=== PATIENT | female | born 1985 | race Caucasian/White ===

== ENCOUNTER 2016-09-28 12:55 | Emergency (ER) | payer MEDICAID ==
[~2016-09-28] VITALS: Ht 165.1 cm; Wt 65.0 kg
[2016-09-28] MEDS ORDERED: SODIUM CHLORIDE 0.9% 1,000 ML IV ONE (13:38)
[2016-09-28 14:45] LABS: BASOPHILS % 0.8 % (0.0-2.0); EOSINOPHILS % 1.5 % (0.0-5.0); HEMATOCRIT. 33.5 % (36.0-48.0); HEMOGLOBIN. 10.8 g/dL (12.0-16.0); LYMPHOCYTES % 20.5 % (20.0-50.0); MEAN CORPUSCULAR HEMOGLOBIN 24.5 pg (28.0-32.0); MEAN CORPUSCULAR VOLUME 76.1 fL (81.0-99.0); MEAN PLATELET VOLUME 8.1 fl (7.4-10.4); MONOCYTES % 8.7 % (2.0-8.0); NEUTROPHILS % 68.5 % (40.0-76.0); PLATELET 284 x1000/uL (130-400); RED CELL DISTRIBUTION WIDTH 17.3 % (11.6-14.6)
[2016-09-28 15:01] LABS: B-HCG QUANTITATIVE < 1 mIU/mL (<3); CARBON DIOXIDE 25 mEq/L (21-32); CHLORIDE 108 mEq/L (98-107)
[2016-09-28 15:25] LABS: CLARITY URINE CLEAR (CLEAR); COLOR URINE YELLOW (YELLOW); GLUCOSE URINE NEGATIVE (NEGATIVE); KETONES URINE 2+ (NEGATIVE); LEUKOCYTE ESTERASE URINE NEGATIVE (NEGATIVE); NITRITE URINE NEGATIVE (NEGATIVE); OCCULT BLOOD URINE NEGATIVE (NEGATIVE); PROTEIN URINE 1+ (NEGATIVE); SPECIFIC GRAVITY URINE 1.027 (1.005-1.030); UROBILINOGEN URINE 0.2 E.U./dL (0.2-1.0)
[2016-09-28] MEDS: MORPHINE SULFATE 4 MG/ML CPJ (NOT FOR IM USE) IV NR ×3 (16:18→16:48)
[2016-09-28] MEDS ORDERED: FLUORESCEIN SODIUM 1MG/STRIP OP ONE (16:45)
[2016-09-28] MEDS ORDERED: TETRACAINE 0.5% OPHTH DROPS 4ML OP ONE (16:45)
[2016-09-28] MEDS ORDERED: FAMOTIDINE 20MG/2ML VIAL IV STA (18:00)
[2016-09-28] MEDS ORDERED: MAGNESIUM/ALUMINUM HYDROXIDE/SIMETHICONE 30ML UDC PO STA (18:02)
[2016-09-28 19:06] LABS: BASOPHILS % 0.7 % (0.0-2.0); EOSINOPHILS % 2.4 % (0.0-5.0); HEMATOCRIT. 29.4 % (36.0-48.0); HEMOGLOBIN. 9.5 g/dL (12.0-16.0); LYMPHOCYTES % 22.1 % (20.0-50.0); MEAN CORPUSCULAR HEMOGLOBIN 24.6 pg (28.0-32.0); MEAN CORPUSCULAR VOLUME 76.1 fL (81.0-99.0); MONOCYTES % 9.8 % (2.0-8.0); PLATELET 248 x1000/uL (130-400); RED BLOOD CELL COUNT 3.86 mill/uL (4.2-5.4); RED CELL DISTRIBUTION WIDTH 17.1 % (11.6-14.6)
[2016-09-28 19:10] LABS: CHLORIDE 109 mEq/L (98-107)
[2016-09-28 19:14] LABS: CARBON DIOXIDE 24 mEq/L (21-32)
[2016-09-28 19:21] LABS: ETHANOL BLOOD < 10 mg/dL
[2016-09-29] MEDS ORDERED: FLUORESCEIN SODIUM 1MG/STRIP ONE (03:57)
[2016-09-29] MEDS ORDERED: TETRACAINE 0.5% OPHTH DROPS 4ML ONE (03:58)
[2016-09-29] MEDS ORDERED: MORPHINE SULFATE 4 MG/ML CPJ (NOT FOR IM USE) IV ONE (04:48)
[2016-09-29] MEDS ORDERED: ONDANSETRON HCL 4MG/2ML VIAL ONE (04:49)
[2016-09-29 08:03] LABS: *AMPHETAMINES SCREEN URINE NEGATIVE (NEGATIVE); *BARBITURATES SCREEN URINE NEGATIVE (NEGATIVE); *BENZODIAZEPINES SCREEN URINE NEGATIVE (NEGATIVE); *COCAINE SCREEN URINE PRESUMTIVE POSITIVE (NEGATIVE); CANNABINOID URINE SCREEN PRESUMTIVE POSITIVE (NEGATIVE); METHADONE URINE SCREEN NEGATIVE (NEGATIVE); OPIATES URINE SCREEN NEGATIVE (NEGATIVE); PHENCYCLIDINE URINE SCREEN NEGATIVE (NEGATIVE)
[2016-09-29 10:49] VITALS: BP 114/58
== END 2016-09-29 12:08 | disposition home or self-care (01) ==
LOC: ER 13:04
DX: S05.12XA Contusion of eyeball and orbital tissues, left eye, initial encounter (principal); S00.12XA Contusion of left eyelid and periocular area, initial encounter; S01.81XA Laceration without foreign body of other part of head, initial encounter; Y07.03 Male partner, perpetrator of maltreatment and neglect; Y04.2XXA Assault by strike against or bumped into by another person, initial encounter; Y93.89 Activity, other specified; R03.0 Elevated blood-pressure reading, without diagnosis of hypertension; D64.9 Anemia, unspecified; N83.201 Unspecified ovarian cyst, right side; Y92.89 Other specified places as the place of occurrence of the external cause; Z90.49 Acquired absence of other specified parts of digestive tract
CPT/HCPCS: 12011; 36415; 70450; 70486; 76830; 76856; 80048; 80053; 80305; 80307; 80329; 81001; 83690; 84702; 85025; 96361; 96374; 96375; 99285; G0482; J2270; J2405; J3490; J7030; Z7610